=== PATIENT | female | born 1955 | race Caucasian/White ===

== ENCOUNTER → 2016-09-17 | Outpatient (CLI) | payer BC ==
--- NOTE | ~2016-09-17 | MY11 ---
[facility] A Service of [facility] RADIOLOGY TEXT RESULTS PATIENT: DENIS CASTILLO LOCATION: [facility] : 55 UNIT #: [id number] AGE: [address]: Bolivar Zheng MD SEX: F ORDER DR: [id number] [address] [address] [id number] O MR#: [id number] Acc #: [id number] NAME: DENIS CASTILLO : 1955 SEX: F STUDY DATE/TIME: 09/17/2016 14:44 UNIT: [facility] ROOM: STUDY DESCRIPTION: MY Mammogram Screening Dig Avinash Attending Physician: Bolivar Zheng M.D. Referring Physician: Bolivar Zheng M.D. Ordering Physician: Bolivar Zheng M.D. Primary Care Physician: Bolivar Zheng M.D. MEDICAL IMAGING REPORT This report is preliminary unless electronic signature is present. EXAM Bilateral digital screening mammogram with CAD DATE 09/17/2016 HISTORY No documented personal or family history of breast cancer or current complaints. COMPARISON None. The patient's previous screening mammogram was performed approximately 15 years ago and is not available for comparison. The current study serves as the new baseline exam. FINDINGS CC and MLO views were obtained of each breast utilizing digital technique and reviewed with an FDA-approved CAD device. Scattered fibroglandular densities are present bilaterally. No suspicious nodule, architectural distortion or clustered microcalcification is seen. There are benign appearing calcifications within each breast. IMPRESSION 1. BIRADS 2. Benign findings. Routine bilateral screening mammogram is recommended in 1 year. Patients over the age of 40 are entered into a reminder system with target due date for the next mammogram. A result letter will also be sent to the patient. BIRADS: 2, benign findings. [facility] A Service of [facility] RADIOLOGY TEXT RESULTS PATIENT: DENIS CASTILLO LOCATION: [facility] : 55 UNIT #: [id number] AGE: [address]: Bolivar Zheng MD SEX: F ORDER DR: Dictated by... Shayna Ferris M.D. THIS IS AN ELECTRONICALLY VERIFIED REPORT Shayna Ferris M.D. at 09/22/2016 8:44 AM SARABJIT/jesus TD: 09/17/2016 21:49 JOB #: [id number] MEDICAL IMAGING REPORT Page 1 of 1
== END | disposition home or self-care (01) ==
LOC: SMAM 13:00
DX: Z12.31 Encounter for screening mammogram for malignant neoplasm of breast (principal)
CPT/HCPCS: G0202